=== PATIENT | female | born 1965 | race Caucasian/White ===

== ENCOUNTER 2025-04-19 20:13 | Emergency (ER) | payer BC, SELFPAY ==
[2025-04-19] VITALS (14 sets, daily range): BP systolic 114–158; BP diastolic 62–94; PULSE 62–72; RESP 12–24; TEMP 36.1; O2SAT 93–99; BMI 14.1
--- OUTSIDE RECORDS SUMMARY | 2025-04-19 20:16 | XMS_ITS | Clinical Summary ---
Author Organization [facility] Address [address] [place] [id number] Care Team Providers Care Tool Setter Apprentice Name Role Phone JimboLiz Flor HARRISON Primary Care Provider [phone] Allergies Active Allergy Reactions Criticality Noted Date Comments Aspirin Stomach Upset 09/26/2006 Epinephrine Syncope 02/17/2016 Latex Other - Describe In Comment Field 03/19/2008 Fingers peel Medications Ventolin HFA 90 mcg/actuation inhalerIndications :Mild persistent asthma without complication (HC) Inhale 1-2 Puffs by mouth every 4 hours while awake. 18 g 11 01/30/20 24 Active atorvastatin (LIPITOR) 20 mg tabletIndications: Mixed hyperlipidemia TAKE ONE TABLET BY MOUTH AT BEDTIME 90 Tablet 01/27/20 25 Active fluticasone furoate (Arnuity Ellipta) 100 mcg/actuation inhalerIndications :Mild persistent asthma without complication (HC) Inhale 1 Puff by mouth once daily. 90 Each 04/17/20 25 Active fluticasone furoate (Arnuity Ellipta) 100 mcg/actuation inhalerIndications :Mild persistent asthma without complication (HC) Inhale 1 Puff by mouth once daily. 90 Each 3 01/30/20 24 025 Discontinued Active Problems Problem Noted Date Diagnosed Date Squamous cell carcinoma, leg, right 02/19/2025 Symptomatic varicose veins of left lower extremi ty 02/19/2025 Prediabetes 02/19/2025 Mild persistent asthma without complication 01/08 Obesity (BMI 30.0-34.9) 02/02/2024 Pap smear for cervical cancer screening 10/28/20 22 Overview (05/06/2022): 03/2022 NIL/HPV Negative Plan: Pap and HPV 03/2027 Routine adult health maintenance 02/06/2019 Overview (02/06/2019): Colonoscopy 01/2019 normal, repeat in 10 years Pre-diabetes 04/12/2011 Migraine 03/08/2011 Generalized anxiety disorder 12/28/2009 Attention deficit disorder without mention of hy peractivity 09/26/2006 Other and unspecified hyperlipidemia 09/26/2006 Encounters Date Type Department Care Team Description 04/16/2025 Refill [facility] [address] [place] [address] Liz Choi DO Refill Request (Arnuity Ellipta) 02/19/2025 9:25 AM CDT Office Visit [facility] [address] [place] [address] Liz Choi DO Medication Management; Health Maintenance Update (carcinoma removed from right thigh/squamous small cell ); armpit (swollen lymph nodes sometimes) 02/19/2025 Travel 02/17/2025 Travel 02/05/2025 Orders Only [facility] Scanner 1 scan: (1-Ord) [facility], EXCISION OF LESION ON RIGHT DISTAL THIGH, 02/05/2025 01/28/2025 Orders Only [facility] Scanner 1 scan: (1-Ord) [facility], SHAVE BIOPSY, 01/28/2025 01/23/2025 Refill [facility] [address] [place] [address] Denisha Rebolledo PA Refill Request (Atorvastatin) from Last 3 Months Immunizations Immunization Administration Dates Next Due COVID-19 vaccine ([employer] 30mcg/0.3mL) PF, MDV 04/24/2021,08/18/2020,07/28/2020 Influenza A (H1N1), Inactivated 04/12/2021 Influenza, IIV4 03/23/2022,,04/29/2019,2013 Influenza, IIV4 (=>6mos) MDV 04/07/2020 Influenza,CCIIV4 PRESERV FREE 05/20/2018 Td (Age >=7 Years) 04/29/2019 Tdap 02/15/2006 Zoster (Shingrix-RZV, recombinant) 01/30/2024 Family History Medical History Relation Name Comments Arthritis Father AND GRANDPARENT Heart Disease Father [place] @ AGE 62 YR Cancer Maternal Aunt OVARIAN IN HER 60'S Allergies Mother AND SIBLINGS Asthma Mother AND SIBLINGS Stroke Mother Heart Disease Other GRANDPARENT Cancer Paternal Aunt 1 OVARIAN IN H ER 60'S Other Paternal Aunt 2 diagnosed wi th Alzheimer's, 60's Other Paternal Grandmother Alzheim er's, diagnosed in late 70's Heart Disease Paternal Uncle [place], hyperlip idemia Cancer-breast No Family History Cancer-ovarian No Family History Relation Name Status Comments Father Maternal Aunt Mother Other Paternal Aunt 1 Paternal Aunt 2 Paternal Grandmother Paternal Uncle Social History Tobacco Use Types Packs/Day Years Used Date Smoking Tobacco: Never Smokeless Tobacco: Never Tobacco Cessation:Counseling Given: Yes Alcohol Use Standard Drinks/Week Comments Yes 0 (1 standard drink = 0.6 oz pur e alcohol) 1-2 drink per month PHQ-2 Answer Date Recorded PHQ-2 TOTAL SCORE 0 01/30/2024 Social Connections Answer Date Recorded Do you often feel lonely or isolated from those around you? 0 02/17/2025 Financial Resource Strain Answer Date R ecorded Difficulty of Paying Living Expenses 3 02/17/2025 Difficulty of Paying Living Expenses Not on file 02/17/2025 Food Insecurity Answer Date Recorded Do you worry your food will run out before you are able to buy more? 1 02/17/2025 Transportation Needs Answer Date Record ed Does lack of transportation keep you from medica l appointments? 1 02/17/2025 Does lack of transportation keep you from work, meetings or getting things that you need? 1 02/17/2025 Housing Stability Answer Date Recorded What is your housing situation today? 1 02/17/2025 Utilities Answer Date Recorded Do you have trouble paying f or utilities (for example, heat, electricity, water, phone)? 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 Gender Identity Not on file Sexual Orientation Not on file Occupation Industry Job Start Date Job End Date Not on file Not on file Not on file Not on file Obstetrics History Para Term AB IAB SAB Ectopic Multiple Livin g Live Births 3 2 2 1 1 2 Date Outcome GA Total Labor Labor/2nd/3rd Weight Sex Type Anes PTL Ashely A1 A5 Name Clin Term Term SAB Comments forcep vaginal delivery Last Filed Vital Signs Vital Sign Reading Time Taken Comments Blood Pressure 124/76 02/19/2025 10:25 AM CDT ma nual Pulse 80 02/19/2025 9:29 AM CDT Temperature 36.9 C (98.5 F) 03/23/2022 9:55 AM CDT Respiratory Rate 20 07/21/2020 1:39 PM PACKING MACHINE PILOT CAN ROUTER Oxygen Saturation 97% 02/19/2025 9:29 AM CDT Inhaled Oxygen Concentration - - Weight 85.5 kg (188 lb 6.4 oz) 02/19/2025 9:29 A M CDT Height 162.9 cm (5' 4.13) 02/19/2025 9:29 AM CD T Body Mass Index 32.2 02/19/2025 9:29 AM CDT Plan of Treatment Health Maintenance Due Date Last Done Comments Hepatitis B series for 19+ ( 1 of 3 - 19+ 3-dose series) 1985 Pneumococcal series for age 50+ (1 of 1 - PCV) 2016 Zoster (shingles) series for age 50+ (2 of 2) 03/26/2024 01/30/2024 Mammogram for age 45-75 07/06/2024 07/06/20, 04/06/2022, 11/06/2017, Additional history exists Depression screening for age 12+ 01/29/2025 01/30/2024, 03/23/2022, 06/12/2020, Additional history exists COVID-19 vaccine series ( season) 2025 04/24/2021, 08/18/2020, 07/28/2020 Influenza Vaccine (#1) 2025 2, 04/12/2021, 04/07/2020, Additional history exists BMI (ht and wt on same day) for age 18+ 02/19/2026 02/19/2025, 01/30/2024, 03/23/2022, Additional history exists Pap test for age 21-65 03/23/2027 , 03/23/2022, 11/06/2017, Additional history exists Colonoscopy through age 75 02/06/202902/06, 02/06/2019, 02/06/2019 Tetanus booster 04/29/2029 04/29/2019, 02/15/2006 Lipids for age 45-75 02/19/2030 02/19/2025, 08/26/2024, 01/30/2024, Additional history exists RSV vaccine for adults or (1 - 1-dose 75+ series) 2041 Hepatitis C screening for ag e 18-79 Completed 04/20/2022 HIV for age 15-65 Completed 01/30/2024 Procedures Procedure Name Priority Date/Time Associated Diagnosis Comments COMP METABOLIC PANEL Routine 02/19/2025 10:15 AM CDT Hypercalcemia LIPID PANEL W REFLEX MEASURED LDL Routine 02/19/2025 10:15 AM CDT Mixed hyperlipidemia HEMOGLOBIN A1C Routine 02/19/2025 10:15 AM CDT Prediabetes SCAN-OPERATIVE/PROC EDURE REPORT 02/05/2025 12:00 AM CDT SCAN-OPERATIVE/PROC EDURE REPORT 01/28/2025 12:00 AM CDT ANTI HIV 1/2 Routine 01/30/2024 1:23 PM CDT Screening for HIV (human immunodeficiency virus) XR MAMMO KANWAL BILAT SCREEN Routine 07/06/2023 10:31 AM PACKING MACHINE PILOT CAN ROUTER Encounter for screening mammogram for malignant neoplasm of breast ANTI HCV Routine 04/20/2022 7:55 AM CDT Need for hepatitis C screening test HPV HIGH RISK Routine 03/23/2022 10:00 AM CDT Screening for cervical cancer COLONOSCOPY 02/06/2019 10:39 AM CDT from Last 3 Months or Most Recently Relevant to Health Maintenance Results * (ABNORMAL) HEMOGLOBIN A1C (02/19/2025 10:15 AM CDT) HEMOGLOBIN A1C 6.3(H) <5.7 % [employer] Comment: For someone without known diabetes, a hemoglobin A1c value between 5.7% and 6.4% is consistent with prediabetes and should be confirmed with a follow-up test. For someone with known diabetes, a value <7% indicates that their diabetes is well controlled. A1c targets should be individualized based on duration of diabetes, age, comorbid conditions, and other considerations. This assay result is consistent with an increased risk of diabetes. Currently, no consensus exists regarding use of hemoglobin A1c for diagnosis of diabetes for children. Blood BLOOD SPECIMEN / Unknown 02/19/2025 10:15 AM CDT 02/19/2025 10:16 AM CDT Liz Choi DO CHEMISTRY Final Resul t [facility] [address] [place] [address], [facility] [address] [place] [address] * (ABNORMAL) LIPID PANEL W REFLEX MEASURED LDL (02/19/2025 10:15 AM CDT) Pathologist [facility] CHOLESTEROL, TOTAL 191 <200 mg/dL [employer] HDL CHOLESTEROL 58 > OR = 50 mg/dL [facility] TRIGLYCERIDES 206(H) <150 mg/dL [employer] Comment: If a non-fasting specimen was collected, consider repeat triglyceride testing on a fasting specimen if clinically indicated. Richard et al. J. of Clin. Lipidol. 2015;9:129-169. LDL-CHOLESTEROL 101(H) mg/dL (calc) [employer] Comment: Reference range: <100 Desirable range <100 mg/dL for primary prevention; <70 mg/dL for patients with CHD or diabetic patients with > or = 2 CHD risk factors. LDL-C is now calculated using the Jeevan calculation, which is a validated novel method providing better accuracy than the Friedewald equation in the estimation of LDL-C. Abelino CORREA et al. KAYE. 2013;310(19): 4390-7737 (http://education.[employer]/faq/OKJ355) CHOL/HDLC RATIO 3.3 <5.0 (calc) [facility] NON HDL CHOLESTEROL 133(H) <130 mg/dL (calc) [facility] Comment: For patients with diabetes plus 1 major ASCVD risk factor, treating to a non-HDL-C goal of <100 mg/dL (LDL-C of <70 mg/dL) is considered a therapeutic option. Blood BLOOD SPECIMEN / Unknown 02/19/2025 10:15 AM CDT 02/19/2025 10:16 AM CDT Liz Alejandrot DO CHEMISTRY Final Resul t [facility] [address] [place] [address], [employer] [address] * (ABNORMAL) COMP METABOLIC PANEL (02/19/2025 10:15 AM CDT) GLUCOSE 106(H) 65 - 99 mg/dL [facility] Comment: Fasting reference interval For someone without known diabetes, a glucose value between 100 and 125 mg/dL is consistent with prediabetes and should be confirmed with a follow-up test. UREA NITROGEN (BUN) 14 7 - 25 mg/dL [facility] CREATININE 0.65 0.50 - 1.03 mg/dL [facility] [employer] [facility] EGFR 102 > OR = 60 mL/min/1. 73m2 [facility] BUN/CREATININE RATIO SEE NOTE: 6 - 22 (calc) [facility] Comment: Not Reported: BUN and Creatinine are within reference range. SODIUM 139 135 - 146 mmol/L [facility] POTASSIUM 4.5 3.5 - 5.3 mmol/L [facility] CHLORIDE 102 98 - 110 mmol/L [facility] CARBON DIOXIDE 28 20 - 32 mmol/L [facility] CALCIUM 10.0 8.6 - 10.4 mg/dL [facility] PROTEIN, TOTAL 7.4 6.1 - 8.1 g/dL [facility] ALBUMIN 4.7 3.6 - 5.1 g/dL [facility] GLOBULIN 2.7 1.9 - 3.7 g/dL (calc) [facility] ALBUMIN/GLOBULIN RATIO 1.7 1.0 - 2.5 (calc) [facility] BILIRUBIN, TOTAL 0.5 0.2 - 1.2 mg/dL [facility] ALKALINE PHOSPHATASE 118 37 - 153 U/L [facility] AST 17 10 - 35 U/L [facility] ALT 32(H) 6 - 29 U/L [facility] Blood BLOOD SPECIMEN / Unknown 02/19/2025 10:15 AM CDT 02/19/2025 10:16 AM CDT us Liz Alejandrot DO CHEMISTRY Final Resul t Performing Organization Address City/State/[facility] Co de Phone Number [facility] [address] [place] [address], [employer] [address] [place] [address] * SCAN-OPERATIVE/PROCEDURE REPORT (02/05/2025 12:00 AM CDT) us Scanner OTHER Final Result * SCAN-OPERATIVE/PROCEDURE REPORT (01/28/2025 12:00 AM CDT) us Scanner OTHER Final Result * ANTI HIV 1/2 (01/30/2024 1:23 PM CDT) HIV-1/HIV-2 SCREEN Non-Reacti ve Non-Reacti ve 01/31/2024 1:26 AM CDT [facility] Comment:HIV-1 p24 and HIV-1/ HIV-2 Ab Not Detected. Blood BLOOD SPECIMEN / Unknown Venipuncture / Unknown 01/30/2024 1:23 PM CDT 01/30/2024 1:26 PM CDT us Denisha RAPHAEL SEND OUTS Final Resu lt [facility] [address] [place] [address], [place] * XR MAMMO KANWAL BILAT SCREEN (07/06/2023 10:31 AM PACKING MACHINE PILOT CAN ROUTER) Anatomical Region Laterality Modality BREASTS, Breast Left, Breast Right Bilateral Mammography Impressions 07/06/2023 3:21 PM PACKING MACHINE PILOT CAN ROUTER There is no radiographic evidence for malignancy. Recommend annual mammograms. MAMMOGRAM ASSESSMENT: ACR 1 Negative PATIENTS: You will also receive a letter with your examination results in an easy to read format. If you have questions about your results, please contact your referring provider. Narrative 07/06/2023 3:21 PM PACKING MACHINE PILOT CAN ROUTER For Patients: As a result of the Century Cures Act, medical imaging exams and procedure reports are released immediately into your electronic medical record. You may view this report before your referring provider. If you have questions, please contact your health care provider. XR MAMMO KANWAL BILAT SCREEN [[id number]] CLINICAL HISTORY: This is an asymptomatic 58 y.o. patient. INDICATION FOR EXAM: Mammogram Screening. TECHNIQUE: CC & MLO views were obtained. This study was evaluated with the assistance of Computer-Aided Detection. Breast Tomosynthesis was used in interpretation. COMPARISON FILM: Yes 04/06/22 [employer] 11/06/17 [facility] [employer] FINDINGS: The breasts are almost entirely fatty. There are no dominant masses, suspicious micro calcifications or areas of architectural distortion. us Liz Flor Detert DO MAMMO Final Resul t * ANTI HCV (04/20/2022 7:55 AM CDT) HEPATITIS C ANTIBODY Non-React suze Non-React suze 04/20/2022 10:07 PM CDT [facility] Comment:Antibodies to HCV no t detected; does not exclude the possibility of exposure to HCV. Blood BLOOD SPECIMEN / Unknown Butterfly / Unknown 04/20/2022 7:55 AM CDT 04/20/2022 8:02 AM CDT Liz Alejandrot DO SEND OUTS Final Resul t [facility] [address] [place] [address], [place] * HPV HIGH RISK (03/23/2022 10:00 AM CDT) TYPE 16 Negative Negative 03/25/2022 11:56 AM CDT [facility] TYPE 18 Negative Negative 03/25/2022 11:56 AM CDT [facility] OTHER HIGH RISK TYPES Negative Negative 03/25/2022 11:56 AM CDT [facility] Other (Cervical) Non-Blood / Unknown 03/23/2022 10:00 AM CDT 03/24/2022 10:06 AM CDT Narrative [facility] - 03/25/2022 11:56 AM CDT HPV types 16, 18, 31, 33, 35, 39, 45, 51, 52, 56, 58, 59, 66 and 68 DNA were undetectable or below the pre-set threshold. Methodology: Glen Virgilio 4800 HPV Test Liz Choi DO MICROBIOLOGY Final Resul t [facility] [address] [place] [address], [place] * COLONOSCOPY (02/06/2019 10:39 AM CDT) 02/06/2019 10:3 9 AM CDT Narrative Transcriptions Abelino Garcia MD - 02/06/2019 11:54 AM CDT Patient Name: Tree Gandhi Procedure Date: 02/06/2019 Gender: Female Date of : 1965 Admit Type: Outpatient Procedure: Colonoscopy Proceduralist: Abelino Garcia MD , Cinthia Matamoros (Nurse) Indications/Pre-Op Diagnosis: Screening for colorectal malignant neoplasm, This is the patient's first colonoscopy Medications: Fentanyl 100 micrograms IV, Midazolam 4 mgIV Procedure Description: The patient had risks, benefits and alternatives explained to andgave informed consent. The patient had a stable cardiopulmonary status and judged an adequate candidate for conscious sedation. The colonoscope was passed through the anus and advanced to thececum, identified by appendiceal orifice and ileocecal valve. Thecolonoscopy was performed without difficulty. The patient tolerated the procedure well. The quality of the bowel preparation was good. The ileocecal valve, appendiceal orifice, and rectum were photographed. Complications: No immediate complications. Estimated Blood Loss & Specimen: Estimated blood loss: none. Specimen collected - None Findings: The perianal and digital rectal examinations were normal. The entire examined colon appeared normal on direct and retroflexion views. Impressions/Post-Op Diagnosis: - The entire examined colon is normal on direct and retroflexionviews. - No specimens collected. Recommendation: - Patient has a contact number available for emergencies. The signsand symptoms of potential delayed complications were discussed with the patient. Return to normal activities tomorrow. Written discharge instructions were provided to the patient. - Resume previous diet. - Continue present medications. - Repeat colonoscopy in 10 years for screening purposes. Moderate Sedation: Moderate (conscious) sedation was administered by the endoscopy nurse and supervised by the endoscopist. The following parameters were monitored: oxygen saturation, heart rate, respiratory rate, blood pressure, adequacy of pulmonary ventilation and reponse to care. [facility] and nursing notes for moderate sedation details. Total physician intraservice time was 16 minutes. Abelino Garcia MD 02/06/2019 11:54:15 AM This report has been signed electronically. Note Initiated On: 02/06/2019 10:39 AM Procedure Code(s): --- Professional --- 93719, Colonoscopy, flexible; diagnostic, including collection of specimen(s) bybrushing or washing, when performed (separateprocedure) Diagnosis Code(s): --- Professional --- Z12.11, Encounter for screening formalignant neoplasm of colon CPT copyright 2018 [employer]. All rights reserved. The codes documented in this report are preliminary and upon break off worker reviewmay be revised to meet current compliance requirements. Scope In: 11:38:37 AM Scope Withdrawal Time 0 hours 7 minutes 29 seconds Scope Out: 11:51:16 AM Abelino Garcia MD PROCEDURE ORD Final Res ult from Last 3 Months or Most Recently Relevant to Health Maintenance Insurance [facility] [address] [place] [id number] [employer] * Guarantor: TREE GANDHI Account Type Relation to Patient Date of Phone Billing Address [employer] [address] [place] [id number] Care Teams Tool Setter Apprentice Relationship Specialty Start Date End [place] [address] PCP - General Family Practice 11/13/17
--- NOTE | 2025-04-19 20:25 | ED.GENADULT ---
HPI - General Adult General Date Seen: 04/19/25 Chief complaint: Chest Pain Stated complaint: Chest Pain, Breathing difficulty Time Seen by Provider: 04/19/25 20:25 History of Present Illness HPI narrative: 59-year-old female presenting to the ER today with her family ( and daughter) for evaluation of chest pain and jaw pain. She is generally pretty healthy. She was doing some gardening today. She does deal with some chronic neck pain for which she takes NSAIDs. Beginning at about 3530 today she started having some substernal chest discomfort and belching that radiates up to her left jaw and left shoulder. She thinks it is probably indigestion but came here to the ER to be checked out. Per records through the [facility] system she also has history of asthma, generalized anxiety, ADHD, migraine headaches, elevated BMI, prediabetes, unspecified hyperlipidemia, varicose veins, squamous cell carcinoma of her skin. She presents to the ER today with her and their granddaughter. She has been healthy and well lately. She had an active day today out in her garden. She was planting some tulips for next spring. She was using a shovel. 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 At about 530 this evening, before supper, she started having a discomfort in the left side of her chest and central chest. It felt like indigestion and was worse. She does have a history of occasional indigestion but no previous history of GERD and it sounds like she does not take any anti acid medications. The pain persisted for while in became much more intense and did radiate up to her jaw. Although she thought it was probably indigestion she came here to the ER to make sure there was no problem with her heart. She has no other recent chest pains or symptoms that would suggest angina. No recent travel or immobilization. No history of DVT or PE. She is a nonsmoker. No swelling in her legs. No pain radiating through to her back. No associated abdominal pain. The pain began before she started eating. She did have [place] food for dinner and did not make the pain better or worse. Related Data Home Medications ?Medication ?Instructions ?Recorded ?Confirmed albuterol sulfate 90 mcg/actuation inhalation 03/22/24 12/03/24 aerosol inhaler (Ventolin HFA) ascorbic acid 30 mg-collagen, tab PO 03/22/24 12/03/24 hydrolyzed 833.3 mg tablet (Collagen Skin Renewal) atorvastatin 20 mg tablet 20 mg PO DAILY 03/22/24 12/03/24 fluticasone furoate 100 1 inh inhalation DAILY 03/22/24 12/03/24 mcg/actuation blister powder for inhalation (Arnuity Ellipta) multivitamin 1 tab PO QDAY 03/22/24 12/03/24 Allergies Allergy/AdvReac Type Severity Reaction Status Date / Time aspirin Allergy Verified 12/03/24 15:45 epinephrine Allergy Verified 12/03/24 15:45 latex Allergy Verified 12/03/24 15:45 [facility] Medical History (Updated 04/19/25 @ 23:07 by Pool Evans MD) Mild persistent asthma ?J45.30 - Mild persistent asthma, uncomplicated (ICD-10) Anxiety ?F41.9 - Anxiety disorder, unspecified (ICD-10) Pre-diabetes ?R73.03 - Prediabetes (ICD-10) Nephrolithiasis ?N20.0 - Calculus of kidney (ICD-10) ADD (attention deficit disorder) ?F98.8 - Other specified behavioral and emotional disorders with onset usually occurring in childhood and adolescence (ICD-10) Family History (Updated 03/15/24 @ 12:55 by Ebony العلي ~ [facility], [facility]) Mother Asthma Stroke Paternal Grandmother Alzheimers disease Social History (Reviewed 12/03/24 @ 15:47 by Ebony العلي ~ [facility], [facility]) Narrative: Smoking Status: Never smoker Do you use any of these nicotine containing products: None Second hand tobacco smoke exposure: No Exam Narrative: Exam Narrative: Constitutional: Appears well-developed and well-nourished. Alert. Conversant. Non toxic. HENT: Head: Atraumatic. Nose: Nose normal. Mouth/Throat: Oral mucosa is clear and moist. no trismus. Pharynx normal. Tonsils symmetric. No tonsillar enlargement, erythema, or exudate. Eyes: Conjunctivae normal. EOM normal. Pupils equal, round, and reactive to light. No scleral icterus. Neck: Normal range of motion. Neck supple. No tracheal deviation present. No JVD Cardiovascular: Normal rate, regular rhythm. No gallop. No friction rub. No murmur heard. Symmetric radial and PT artery pulses Pulmonary/Chest: Effort normal. No stridor. No respiratory distress. No wheezes. No rales. No rhonchi . No tenderness. Abdominal: Soft. Bowel sounds normal. No distension. No mass. No tenderness. No rebound. No guarding. No right upper quadrant tenderness. No CVA tenderness. Musculoskeletal: RUE: Normal range of motion. No tenderness. No deformity LUE: Normal range of motion. No tenderness. No deformity RLE: Normal range of motion. No edema. No tenderness. No deformity LLE: Normal range of motion. No edema. No tenderness. No deformity Neurological: Alert and oriented to person, place, and time. Normal strength. CN II-VII intact. No sensory deficit. GCS eye subscore is 4. GCS verbal subscore is 5. GCS motor subscore is 6. Normal coordination Skin: Skin is warm and dry. No rash noted. No pallor. Normal capillary refill. Psychiatric: Normal mood. Very pleasant and cooperative. Somewhat anxious. Const: Vital Signs, click to edit/add: Vital Signs - 24 hr 04/19/25 20:18 04/19/25 21:31 04/19/25 21:32 Temperature 97.0 F L Pulse Rate 67 63 Pulse Rate [Left P ulse Oximeter] 72 Respiratory Rate 18 18 19 Blood Pressure 114/62 Blood Pressure [Ri ght Upper Arm] 158/65 H Pulse Oximetry 98 94 95 Oxygen Delivery Me od Room Air 04/19/25 21:45 04/19/25 21:46 04/19/25 21:47 Temperature Pulse Rate 65 63 68 Pulse Rate [Left P ulse Oximeter] Respiratory Rate 21 12 13 Blood Pressure 121/72 Blood Pressure [Ri ght Upper Arm] Pulse Oximetry 96 99 93 Oxygen Delivery Me thod 04/19/25 22:00 04/19/25 22:02 04/19/25 22:15 Temperature Pulse Rate 62 64 Pulse Rate [Left P ulse Oximeter] Respiratory Rate 12 20 18 Blood Pressure 127/66 Blood Pressure [Ri ght Upper Arm] Pulse Oximetry 95 95 Oxygen Delivery Me thod 04/19/25 22:17 04/19/25 22:30 04/19/25 22:31 Temperature Pulse Rate 66 62 62 Pulse Rate [Left P ulse Oximeter] Respiratory Rate 17 19 15 Blood Pressure 114/68 125/69 Blood Pressure [Ri ght Upper Arm] Pulse Oximetry 96 96 97 Oxygen Delivery Me thod Course Vital Signs Vital signs: Initial Vital Signs Temperature 97.0 F L 04/19/25 20:18 Temperature Source Temporal Artery Scan 04/19/25 20:18 Pulse Rate 72 04/19/25 20:18 Pulse Rhythm Regular 04/19/25 20:18 Respiratory Rate 18 04/19/25 20:18 Blood Pressure 158/65 H 04/19/25 20:18 Blood Pressure Mean 96 04/19/25 20:18 Blood Pressure Position Sitting 04/19/25 20:18 Pulse Oximetry 98 04/19/25 20:18 Oxygen Delivery Method Room Air 04/19/25 20:18 Vital Signs Temperature 97.0 F L 04/19/25 20:18 Pulse Rate 72 04/19/25 20:18 Respiratory Rate 18 04/19/25 20:18 Blood Pressure 158/65 H 04/19/25 20:18 Pulse Oximetry 98 04/19/25 20:18 Oxygen Delivery Method Room Air 04/19/25 20:18 Temperature 97.0 F L 04/19/25 20:18 Pulse Rate 62 04/19/25 22:31 Respiratory Rate 15 04/19/25 22:31 Blood Pressure 125/69 04/19/25 22:31 Pulse Oximetry 97 04/19/25 22:31 Oxygen Delivery Method Room Air 04/19/25 20:18 Medications Administered Medications: Generic Name Dose Route Start Last Admin Trade Name Freq PRN Reason Stop Dose Admin Nitroglycerin 0.4 mg 04/19/25 20:27 04/19/25 21:15 Nitroglycerin 0.4 Mg Tab.Subl SUBLINGUAL 0.4 mg Q5M PRN Administration Discontinued Medications Generic Name Dose Route Start Last Admin Trade Name Freq PRN Reason Stop Dose Admin Lidocaine/Aluminum/Magnesium/Simeth 30 ml 04/19/25 21:23 04/19/25 21:36 Gi Cocktail (Visc Lido/Antacid) 30 Ml PO 04/19/25 21:24 30 ml ONCE ONE Administration Medical Decision Making MDM Narrative Medical decision making narrative: This patient presents to the ER today for evaluation of chest pain that began about 5:30 p.m. this evening, about 3 hours prior to presentation. Differential was broad. No evidence of palpitations, syncope or other cardiac dysrhythmia. We considered possible ACS, however workup with EKG and troponin is negative. HEART score is []. Given time since onset of symptoms, I do not think the patient needs to be admitted for further sets of enzymes. EKG shows no evidence for pericarditis. Clinical presentation not suggestive of myocarditis. Chest x-ray shows no evidence for pneumonia, pneumothorax, pulmonary edema, pleural effusion, rib fracture, cardiomegaly. Mediastinum is normal on the x-ray. The patient has no ripping or tearing pain through to the back and has symmetric pulses on exam, no other acute neuro findings so I doubt aortic dissection. Risk of radiation and contrast exposure would outweigh the benefit of CT angiogram. We considered PE for this patient. Overall very low risk given absence tachycardia, tachypnea, hypoxia, pleuritic component to her chest pain as well as resolution here in the ER. At this time would hold off on D-dimer testing or CT PA No wheezing or bronchospasm to suggest COPD/asthma. No signs of chest wall cellulitis, shingles, injury. Consider possibility that she was having acid reflux. Discussed with the patient that at this point there is no evidence for acute cardiac ischemia but that reflux cannot be definitively diagnosed. She is feeling better. With reasonable clinical confidence, I think the patient is safe for outpatient follow up. Discussed return precautions, especially with more episodes of pain. She will need follow-up in clinic this week with her primary care provider.. Questions answered. Patient voices comfort with the plan. Lab Data Labs: Lab Results 04/19/25 04/19/25 04/19/25 Range/Units 20:27 20:35 22:30 WBC 12.13 H (4.50-11.00) K/uL RBC 4.48 (4.00-5.20) m/uL Hgb 13.9 (12.0-16.0) gm/dL Hct 41.6 (33.0-51.0) % MCV 93 (80-100) fL MCH 31 (26-34) pg MCHC 33 (32-36) gm/dL RDW Coeff of Chapo 11.8 (11.5-15.5) % Plt Count 356 (140-440) K/uL Neut % (Auto) 52.8 (42.0-72.0) % Lymph % (Auto) 37.2 (20-44) % Wagoner % (Auto) 7.0 (0.0-11.0) % Eos % (Auto) 1.8 (0.0-7.0) % Baso % (Auto) 0.5 (0.0-3.0) % Neut # (Auto) 6.40 (1.7-7.0) K/uL Lymph # (Auto) 4.50 H (0.90-2.90) K/uL Wagoner # (Auto) 0.80 (0.00-0.90) K/UL Eos # (Auto) 0.20 (0.00-0.50) K/uL Baso # (Auto) 0.10 (0.00-0.30) K/uL Abs Immat Gran (auto) 0.10 (0.00-0.30) K/uL Imm/Tot Granulo (auto) 0.7 % Sodium 136 (135-149) mmol/L Potassium 3.6 (3.6-5.1) mmol/L Chloride 99 (96-114) mmol/L Carbon Dioxide 32 (20-32) mmol/L Anion Gap 5 L (7-15) mEq/L BUN 16 (7-30) mg/dL Creatinine 0.7 (0.5-1.5) mg/dL Estimated Creat Clear 51.56 Estimated GFR 100 ml/min Glucose 105 (60-115) mg/dL Calcium 10.0 (8.4-10.6) mg/dL Total Bilirubin 0.3 (0.1-1.5) mg/dL AST 31 (12-35) U/L ALT 37 H (4-35) U/L Alkaline Phosphatase 113 (40-150) U/L Total Protein 7.6 (6.0-8.3) g/dL Albumin 4.6 (3.3-5.0) g/dL Lipase 98 (23-300) U/L POC Troponin I 0.00 L 0.00 L (0.01-0.04) ng/ml Discharge Plan Discharge Clinical Impression: Chest pain Patient Disposition: Home, Self-Care Condition: Stable Instructions: Chest Pain (DC) Additional Instructions: As we discussed, so far your workup looks reassuring. However, please monitor your condition carefully. Not every heart problem shows up on the blood tests here in the ER. If you have more episodes of chest pain, trouble breathing, pain in the back of your chest, palpitations, dizziness or fainting spells, or any problems, please return to the ER right away. Even if you are getting better, please recheck with your regular doctor within 1 week. Ask your doctor whether not a stress test might be helpful. Prescriptions: No Action atorvastatin 20 mg tablet 20 mg PO DAILY albuterol sulfate [Ventolin HFA] 90 mcg/actuation HFA aerosol inhaler inhalation Arnuity Ellipta 100 mcg/actuation blister with device 1 inh inhalation DAILY multivitamin Tablet 1 tab PO QDAY Collagen Skin Renewal 30-833.3 mg tablet PO Follow Up/Referrals: Liz Choi DO [Primary Care Provider, Family Practice] Stand Alone Forms: [facility] Info Instructions
--- NOTE | 2025-04-19 20:27 | CRLHL7_ITS ---
For Patients: As a result of the Cures Act, medical imaging exams and procedure reports are released immediately into your electronic medical record. You may view this report before your referring provider. If you have questions, please contact your health care provider. Indication: Chest pain Technique: Two views of the chest Comparison: None Findings/Impression: No acute cardiopulmonary process detected. Dictated by Carl Sarmiento MD @ 04/19/2025 9:56:04 PM (Electronically Signed)
[2025-04-19 20:48] LABS: Troponin, Point-of-Care* 0.00 ng/ml (0.01-0.04)
[2025-04-19 20:52] LABS: Albumin* 4.6 g/dL (3.3-5.0); Chloride* 99 mmol/L (96-114); Potassium* 3.6 mmol/L (3.6-5.1); Sodium* 136 mmol/L (135-149)
[2025-04-19 20:55] LABS: Alanine Aminotransferase* 37 U/L (4-35); Alkaline Phosphatase* 113 U/L (40-150); Anion Gap 5 mEq/L (7-15); Aspartate Amino Transferase* 31 U/L (12-35); Bilirubin Total* 0.3 mg/dL (0.1-1.5); Blood Urea Nitrogen* 16 mg/dL (7-30); Calcium* 10.0 mg/dL (8.4-10.6); Carbon Dioxide* 32 mmol/L (20-32); Creatinine* 0.7 mg/dL (0.5-1.5); Est. Creatinine Clearance* 51.56; Estimated Glomerular Filt Rate 100 ml/min; Glucose* 105 mg/dL (60-115); Total Protein* 7.6 g/dL (6.0-8.3)
[2025-04-19] MEDS: NITROGLYCERIN 0.4 MG TAB.SUBL SUBLINGUAL ×2 (21:10→21:15)
[2025-04-19 21:16] LABS: Hematocrit* 41.6 % (33.0-51.0); Hemoglobin* 13.9 gm/dL (12.0-16.0); Immature Granulocytes Pct Auto 0.7 %; Mean Corpuscular HGB Conc 33 gm/dL (32-36); Mean Corpuscular Hemoglobin 31 pg (26-34); Mean Corpuscular Volume 93 fL (80-100); RDW Coefficient of Variation % 11.8 % (11.5-15.5); Red Blood Count* 4.48 m/uL (4.00-5.20); White Blood Count* 12.13 K/uL (4.50-11.00)
[2025-04-19 21:22] LABS: Immature Granulocytes Abs Auto 0.10 K/uL (0.00-0.30); Lymphocytes Absolute Auto 4.50 K/uL (0.90-2.90); Slide Review Reflex No
[2025-04-19] MEDS: GI COCKTAIL (VISC LIDO/ANTACID) 30 ML PO (21:36)
[2025-04-19 23:01] LABS: Troponin, Point-of-Care* 0.00 ng/ml (0.01-0.04)
== END 2025-04-19 23:25 | disposition home or self-care (01) ==
PROVIDERS: Emergency Provider Emergency Medicine; PCP Family Medicine
DX: R07.9 Chest pain, unspecified (principal)
CPT/HCPCS: 36415; 71046; 80053; 83690; 84484; 85025; 93005; 99284; A9270